=== PATIENT | female | born 1940 | race African-American/Black ===

== ENCOUNTER 2016-09-12 09:24 | Emergency (ER) | payer MEDICARE ==
[~2016-09-12] VITALS: Ht 172.7 cm; Wt 118.0 kg
[2016-09-12 09:31] VITALS: BP 123/79
== END 2016-09-12 10:57 | disposition home or self-care (01) ==
LOC: ER 10:24
DX: M54.30 Sciatica, unspecified side (principal); I12.9 Hypertensive chronic kidney disease with stage 1 through stage 4 chronic kidney disease, or unspecified chronic kidney disease; N18.9 Chronic kidney disease, unspecified; Z88.6 Allergy status to analgesic agent; Z88.8 Allergy status to other drugs, medicaments and biological substances; Z96.659 Presence of unspecified artificial knee joint; Z90.49 Acquired absence of other specified parts of digestive tract; Z90.710 Acquired absence of both cervix and uterus
CPT/HCPCS: 99281

== ENCOUNTER 2016-09-30 09:17 | Emergency (ER) | payer MEDICARE ==
[~2016-09-30] VITALS: Ht 172.7 cm; Wt 114.0 kg
[2016-09-30] MEDS ORDERED: FURO40TA5 PO (09:29)
[2016-09-30] MEDS ORDERED: TRAM50TA3 PO (09:29)
[2016-09-30] MEDS ORDERED: ALLO300T2 PO (09:29)
[2016-09-30] MEDS ORDERED: AMLO10TA80 PO (09:29)
[2016-09-30] MEDS ORDERED: OXYB15TA9 PO (09:29)
[2016-09-30] MEDS ORDERED: TIZA4TAB4 PO (09:29)
[2016-09-30] MEDS ORDERED: ASPI-1035 PO (09:29)
[2016-09-30] MEDS ORDERED: SIMV20TA6 PO (09:29)
[2016-09-30] MEDS ORDERED: ACETAMINOPHEN WITH CODEINE 300/30MG TABLET PO ONE (09:45)
[2016-09-30 09:58] VITALS: BP 123/63
== END 2016-09-30 11:28 | disposition home or self-care (01) ==
LOC: ER 11:21
DX: M54.16 Radiculopathy, lumbar region (principal); I10 Essential (primary) hypertension; Z88.6 Allergy status to analgesic agent; Z88.8 Allergy status to other drugs, medicaments and biological substances; Z79.899 Other long term (current) drug therapy; I12.0 Hypertensive chronic kidney disease with stage 5 chronic kidney disease or end stage renal disease; N18.6 End stage renal disease
CPT/HCPCS: 99283